=== PATIENT | female | born 1965 | race Caucasian/White ===

== ENCOUNTER → 2025-03-09 | Outpatient (CLI) | payer MEDICAID, SELFPAY ==
--- NOTE | 2025-03-09 11:00 | XR_ITS ---
Examination: Breast ultrasound, unilateral, left Date and time of exam: March 09, 2020 5:11 AM INDICATIONS: Left breast pain and palpable lumps several months, history left breast biopsy 6:00 nodule February 15, 2022, negative, mammogram January 17, 2022 8mm oval mass lower left breast, left breast sonogram December 01, 2021 6:00 nodule 7 mm Technique: Real-time cardona scale ultrasonographic imaging performed left breast including all 4 quadrants as well as nipple retroareolar and axillary region. Findings: 12:00 nodule lobular margins 8 x 5 mm 2:00 nodule lobular margins 14 x 7 mm 6:00 nodule with breast biopsy marker indistinct margins 8 x 6 mm IMPRESSION: BI-RADS Category 3: Probably benign findings One additional 6 month left breast sonogram follow-up strongly recommended
== END | disposition home or self-care (01) ==
LOC: CDIM 10:34
PROVIDERS: PCP Registered Nurse Community Health; Referring Provider Registered Nurse Community Health; Visit Provider Registered Nurse Community Health
DX: N64.4 Mastodynia (principal); Z45.812 Encounter for adjustment or removal of left breast implant
CPT/HCPCS: 76641